=== PATIENT | male | born 1975 | race Caucasian/White ===

== ENCOUNTER 2017-08-25 09:21 | Emergency (ER) | payer SELFPAY ==
[2017-08-25 09:34] VITALS: BP 119/78
[2017-08-25] MEDS ORDERED: CLINDAMYCIN HCL 150 MG CAPSULE PO ONE (10:11)
[2017-08-25] MEDS ORDERED: LIDOCAINE 2% VISCOUS SOLN 20 ML UDCUP PO ONE (10:11)
[2017-08-25] MEDS ORDERED: IBUPROFEN 800 MG TABLET PO ONE (10:11)
--- NOTE | 2017-08-25 10:17 | ER Document Report ---
ED Oral Problem - General Chief Complaint: Toothache Stated Complaint: DENTAL PAIN Time Seen by Provider: 08/25/17 09:51 Mode of Arrival: Ambulatory Notes: 42-year-old male presents to ED for complaint of dental pain for years this time since Friday. All the teeth and the left lower jaw broken off at the gumline and decayed with gumline red and inflamed. He states he does not have the money to go and get his teeth fixed he states when somebody apply for he will get them fixed. TRAVEL OUTSIDE OF THE [place] IN LAST 30 DAYS: No - HPI Patient complains to provider of: Jaw pain, Toothache Onset: Other Onset: Gradual - Chronic Quality of pain: Sharp, Throbbing Severity: Moderate Pain Level: 3 Associated symptoms: Jaw pain, Toothache Worsened by: Cold Relieved by: Nothing Similar symptoms previously: Yes Recently seen / treated by doctor/dentist: No - Related Data Allergies/Adverse Reactions: penicillin G [Penicillin G] Allergy (Verified 08/25/17 09:26) Past Medical History - General Information source: Patient - Social History Smoking Status: Current Every Day Smoker Cigarette use (# per day): Yes - Pack per day Chew tobacco use (# tins/day): No Smoking Education Provided: Yes - Less than 2 minutes Frequency of alcohol use: None Drug Abuse: [place] salts Lives with: Spouse/Significant other Family History: Arthritis, Thyroid Disfunction, Other - Seizures. denies: CAD, COPD, CVA, DM, Hyperlipidemia, Hypertension, Malignancy Patient has suicidal ideation: No Patient has homicidal ideation: No - Past Medical History Cardiac Medical History: Reports: None Pulmonary Medical History: Reports: Hx Asthma EENT Medical History: Reports: None Neurological Medical History: Reports: None Endocrine Medical History: Reports: None Renal/ Medical History: Reports: None Malignancy Medical History: Reports None GI Medical History: Reports: Hx Colonoscopy Musculoskeltal Medical History: Reports Hx Musculoskeletal Trauma Skin Medical History: Reports None Psychiatric Medical History: Reports: None Traumatic Medical History: Reports: None Infectious Medical History: Reports: None Past Surgical History: Reports: Hx Cholecystectomy, Hx Inguinal Hernia - Immunizations Immunizations up to date: Yes Hx Diphtheria, Pertussis, Tetanus Vaccination: Yes Review of Systems - Review of Systems Constitutional: No symptoms reported EENT: Mouth pain, Dental problem Cardiovascular: No symptoms reported Respiratory: No symptoms reported Gastrointestinal: No symptoms reported Genitourinary: No symptoms reported Male Genitourinary: No symptoms reported Musculoskeletal: No symptoms reported Skin: No symptoms reported Hematologic/Lymphatic: No symptoms reported Neurological/Psychological: No symptoms reported Physical Exam - Vital signs Vitals: Temp Pulse Resp BP Pulse Ox 97.9 F 91 18 119/78 96 08/25/17 09:33 08/25/17 09:33 08/25/17 09:33 08/25/17 09:33 08/25/17 09:33 Interpretation: Normal - General General appearance: Appears well, Alert - HEENT Head: Normocephalic, Atraumatic Eyes: Normal Pupils: PERRL Ears: Normal External canal: Normal Tympanic membrane: Normal Sinus: Normal Nasal: Normal Mouth/Lips: Caries Mucous membranes: Normal Teeth diagram: 1 - Teeth broken off at the gumline with redness and swelling to the jaw around these teeth Pharynx: Normal Neck: Normal - Respiratory Respiratory status: No respiratory distress Chest status: Nontender Breath sounds: Normal Chest palpation: Normal - Cardiovascular Rhythm: Regular Heart sounds: Normal auscultation Murmur: No - Abdominal Inspection: Normal Distension: No distension Bowel sounds: Normal Tenderness: Nontender Organomegaly: No organomegaly - Back Back: Normal, Nontender - Extremities General upper extremity: Normal inspection, Nontender, Normal color, Normal ROM , Normal temperature General lower extremity: Normal inspection, Nontender, Normal color, Normal ROM , Normal temperature, Normal weight bearing. No: Raymon's sign - Neurological Neuro grossly intact: Yes Cognition: Normal Orientation: AAOx4 Eva Coma Scale Eye Opening: Spontaneous [place] Coma Scale Verbal: Oriented Eva Coma Scale Motor: Obeys Commands Eva Coma Scale Total: 15 Speech: Normal Motor strength normal: LUE, RUE, LLE, RLE Sensory: Normal - Psychological Associated symptoms: Normal affect, Normal mood - Skin Skin Temperature: Warm Skin Moisture: Dry Skin Color: Normal Course - Re-evaluation Re-evalutation: 08/25/17 10:20 Patient treated with clindamycin and ibuprofen and given a syringe of viscous lidocaine to use to numb the gum until the antibiotics help to reduce the swelling. Patient discharged home with instructions to follow-up with the dentist. Patient states he cannot go to the dentist because he does not have the money I explained that this is just a temporary fix that the teeth need to be removed. He says he cannot do this unless somebody pays for. - Vital Signs Vital signs: Temp Pulse Resp BP Pulse Ox 97.9 F 91 18 119/78 96 08/25/17 09:33 08/25/17 09:33 08/25/17 09:33 08/25/17 09:33 08/25/17 09:33 Discharge - Discharge Clinical Impression: Pain due to dental caries Condition: Stable Disposition: HOME, SELF-CARE Additional Instructions: TOOTHACHE: Your pain is due to dental decay. The tooth must be repaired in order for you to feel better. You will, therefore, be referred to a dentist. We do not have dentists on the staff at [facility]. Severe swelling or drainage around a tooth usually means a dental abscess. This also requires evaluation and treatment by the dentist, but antibiotics may be prescribed while awaiting dental treatment. You should be rechecked immediately if you develop major swelling of the face, increasing pain, a lump in the jaw or gums, headache, difficulty swallowing, or fever. Ibuprofen Ibuprofen is an excellent, safe drug for pain control. In addition, it has potent antiinflammatory effects which are beneficial, especially in the treatment of injuries, arthritis, or tendonitis. It's best to take ibuprofen with food. Persons with ulcer disease or allergy to aspirin should notify their physician of this before taking ibuprofen. Take the medication exactly as prescribed. Don't take additional doses unless instructed to do so by your doctor. If you develop wheezing, shortness of breath, hives, faintness, stomach pain, vomiting, or dark black stools, return for re-evaluation at once. CLINDAMYCIN: You have been given a prescription for the antibiotic clindamycin. It is often prescribed for infections in the mouth, such as dental infections or abscesses, and for skin infections due to MRSA. It's important that you take all the medication, unless instructed otherwise by your physician. Failure to complete the entire course can result in relapse of your condition. Common side effects of antibiotics include nausea, intestinal cramping, or diarrhea. Women may develop vaginal yeast infections, and babies can get yeast (thrush) in the mouth following the use of antibiotics. Contact your physician if you develop significant side effects from this medication. Allergy to this antibiotic can result in hives, wheezing, faintness, or itching. If symptoms of allergy occur, stop the medication and call the doctor. Use the viscous lidocaine you were provided with 2 nummular teeth every 3-4 hours. Use ibuprofen 600 every 6 hours or 800 every 8 hours also for pain no more than 800 mg of ibuprofen at one time and no more than 2400 mg in a 24 hour. FOLLOW-UP CARE: You have been referred for follow-up care to the dentists listed below. Call the dentists office for an appointment as you were instructed or within the next two days. If you experience worsening or a significant change in your symptoms, notify the physician immediately or return to the Emergency Department at any time for re-evaluation. [facility] [address] [place], [place] Friday mornings, by appointment [facility] [address] [place] [address] [facility] [address] [facility] [address] [facility] (4[facility]) [facility] [address] [email or web address] [address] [place] [address] Friday- 8:00am to 5:00 pm Will see patients from other [facility]. Charges based on income and family size and accepts Medicare, Medicaid, and Insurances Will pull molars [facility] [address] Hours of Operation 8:00 am - 4:30 pm weekdays The following dental offices accept Medicaid: [facility] Dr. [address] Dr. Parikh Dr. Howard Dr. Martinez Shashi Nunez Lutsavage, and [place] [facility] Dr. Wang ([place]) Dr. Mallory ([place]) [facility] Drs. Bravo ([place]) Dr. Augustine ([place]) [facility] Dr. Suárez ([place]) Drs. Ramos and ([place]) Medicaid Care Line Prescriptions: Clindamycin HCl 300 mg PO Q6 #40 capsule Forms: Smoking Cessation Education
== END 2017-08-25 10:26 | disposition home or self-care (01) ==
LOC: ER 09:21
DX: K02.9 Dental caries, unspecified (principal); F17.210 Nicotine dependence, cigarettes, uncomplicated; Z88.0 Allergy status to penicillin; Z90.49 Acquired absence of other specified parts of digestive tract
CPT/HCPCS: 99282; J3490

== ENCOUNTER 2018-08-10 23:58 | Emergency (ER) | payer SELFPAY ==
[2018-08-11] MEDS ORDERED: ACETAMINOPHEN WITH CODEINE 120-12 MG/5 ML UDCUP PO ONE (01:04)
[2018-08-11] MEDS ORDERED: GUAIFENESIN/CODEINE PHOS 100-10 MG/ 5 ML UDC PO ONE (01:05)
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
[2018-08-11] MEDS ORDERED: PREDNISONE 20 MG TABLET PO ONE (02:56)
[2018-08-11] MEDS ORDERED: ALBUTEROL SULFATE HFA (90 MCG/PUFF) 8 GM MDI (1 MDI/ER DISP) IH ONE (02:57)
[2018-08-11 03:19] VITALS: BP 138/74
== END 2018-08-11 03:19 | disposition home or self-care (01) ==
LOC: ER 23:58
DX: J40 Bronchitis, not specified as acute or chronic (principal); R05 Cough; R06.2 Wheezing; R07.81 Pleurodynia; R68.83 Chills (without fever); J34.89 Other specified disorders of nose and nasal sinuses; F17.210 Nicotine dependence, cigarettes, uncomplicated; Z71.6 Tobacco abuse counseling
CPT/HCPCS: 99283; 71045; J7512; J3490